=== PATIENT | female | born 1950 | race Caucasian/White ===

== ENCOUNTER 2018-09-03 08:05 | Inpatient (IN) ==
--- NOTE | 2018-09-02 21:38 | Discharge Summary ---
<Russell Heath - Last Filed: 09/03/18 09:16> Orders not resulted at time of discharge: Pending orders 09/02/18 21:33 H/H [Hemoglobin and Hematocrit] [HEME] Routine 09/03/18 00:01 XR shoulder complete LT [XR] Routine 09/03/18 08:26 US anesthesia pain block [US] Routine Date of Encounter: 09/03/18 - Hospital Course Hospital course: Ms. Stahl is a 68 year old female - Time Spent with Patient Total time spent providing and/or coordinating discharge services: - Discharge Medications Home Medications: OxyCODONE Immed Rel [Roxicodone 5 MG] 5 mg PO Q6HR PRN 7 Days #28 tablet [Rx] Albuterol Sulfate [Albuterol Inhaler] 2 puff IH Q4HR PRN 09/03/18 [History] Amitriptyline [Elavil] 50 mg PO HS 09/03/18 [History] Aspirin [Lo-Dose Aspirin EC] 81 mg PO DAILY 09/03/18 [History] Benazepril HCl 5 mg PO DAILY 09/03/18 [History] Budesonide/Formoterol 160/4.5 [Symbicort 160/4.5] 2 puff IH BIDR 09/03/18 [ History] Esomeprazole Magnesium [Nexium] 40 mg PO HS 09/03/18 [History] Gabapentin [Neurontin] 800 mg PO BID 09/03/18 [History] Leflunomide 20 mg PO DAILY 09/03/18 [History] Multivit-Min/FA/Lycopen/Lutein [Centrum Silver Men Tablet] 1 tab PO DAILY [History] Simvastatin [Zocor] 40 mg PO HS 09/03/18 [History] Allergies/Adverse Reactions: 3 Allergy/AdvReac Type Severity Reaction Status Date / Time No Known Allergies Allergy Verified 09/03/18 09:34 Primary care physician: Gabriela Oneill CNP - Patient Status Disposition: Home, Self-Care Condition: Good - Discharge Instructions Follow Up With: Gabriela Oneill CNP [Primary Care Provider] - Additional Instructions: Discharge Instructions: Total Shoulder Please call [facility] ([phone]), your Primary Care Physician, or report to the Emergency Room if you have any of the following symptoms: Nausea, vomiting, fever greater that 101.5, swelling, chest pain, shortness of breath, increased pain/redness/drainage/odor for your incision site, numbness/ tingling, or any other concerning symptoms. ACTIVITY: Always keep your arm in the sling. Do not raise your arm away from your body. Do not use your arm to help with getting in or out of bed. No weight bearing permitted. Only perform those exercises given to you by your therapist. Incentive Spirometer 10 times an hour. MEDICATIONS: Upon discharge resume your home medications. Take all the medications as prescribed. Take a stool softener if taking narcotic pain medications. Stool softeners are only effective if you drink enough fluids. Drink 6-8 glass of water or fluids a day, unless this is not allowed for another health problem. Despite using stool softeners, if you haven't had a bowel movement in 3 days, please switch to a gentle laxative. Gentle laxatives are sold over the counter. You should have a bowel movement within 24 hours, if not call the office. You will be discharged from the hospital with a prescription for pain medication. You are encouraged to decrease the use of narcotic pain medication as tolerated. Should you require a refill, please call the office. [facility] prescribes narcotic pain medication for only 4-6 weeks after surgery. If you require pain medication beyond this time period, you may be referred to your Primary Care Physician or to the Pain Clinic for further evaluation. Plan ahead for refills on pain medication as many narcotics either need to be picked up at the office or mailed. It is best to call 48-72 hours in advance of needing a prescription refill so you don't run out of medication. To help control the post-operative pain, you may take NSAIDs (Aleve,Advil, Motrin, Ibuprofen, Naprosyn) or Tylenol as prescribed on the bottle in addition to the pain medication. WOUND CARE: Leave the dressing on for 7-10 days. You may change the dressing if it becomes saturated greater than 50%. Do not get the dressing wet at anytime. Wash your hands with antibacterial soap, rinse and dry prior to any wound care. If you have severino the visiting nurse or rehab facility can remove the stapes 10-14 days after surgery and place steri-strips across the wound. Leave the steri-strips in place until they fall off on their own. You may let water from the shower run on top of the steri-strips. If you do not have a visiting nurse or rehab facility, you will need to return to the office at 10-14 days for the severino to be removed. If you have itching or redness around the dressing call the office. FOLLOW-UP: Please follow up with your surgeon in the orthopedic clinic, as scheduled <Keisha Meyer - Last Filed: 09/03/18 16:48> Date of Encounter: 09/03/18 Time of Encounter: 16:45 - Discharge Diagnosis (1) Status post reverse total arthroplasty of left shoulder Priority: Primary Status: Acute Comments: Remove Pillow in AM Opsite dressing, leave intact until first post-operative visit. Zipline/[place] in place, plan to remove at post-operative day #14-16. If dressing becomes >50% saturated, contact office, remove dressing and place appropriate dressing in its place. Do not allow for dressing to get wet. Shoulder Precautions x 6 weeks. Apply cold therapy wrap 3-6x/day for 20 minutes at a time. Encourage ambulation throughout the day. Use Incentive spirometer 10x/hour. Elevate affected extremity above heart as tolerated. NWB to affected upper extremity x 6 weeks. Will remove brace at first post-operative appointment. OK to remove during PT/ OT and Home exercises. (2) Rotator cuff arthropathy of left shoulder Priority: Primary Status: Acute - Hospital Course Hospital course: Ms. Stahl is a 68 year old female, status post Left TSR-reverse. . Patient had uneventful postoperative course. Stable for discharge. Complaining of nausea - given Scopalamine patch. Patient seen at bedside, without complaints. A&O x 3 Afebrile, vital signs stable. Vital Signs Temp Pulse Resp BP Pulse Ox 09/03/18 15:15 94 18 143/85 91 09/03/18 14:15 86 16 132/84 92 09/03/18 13:14 83 16 126/84 09/03/18 12:51 97.6 F 80 16 121/83 96 09/03/18 12:15 76 16 138/89 93 09/03/18 11:52 98.2 F 83 18 151/74 95 09/03/18 11:42 98.1 F 84 18 135/74 96 09/03/18 11:32 98.1 F 91 18 117/83 94 09/03/18 11:22 97.7 F 135/79 98 09/03/18 10:09 88 132/75 94 09/03/18 09:54 87 138/74 95 09/03/18 08:27 98.2 F 92 18 132/68 94 Intake and Output 09/03/18 09/03/18 09/03/18 07:59 15:59 23:59 Output Total 50 / 50 Balance -50 / -50 Output: Estimated Blood Loss 50 / 50 Other: Weight 85.729 kg Patient Weight 09/03/18 23:59 Weight 85.729 kg Labs reviewed. H/H - stable, asymptomatic Short CBC 09/03/18 Range/Units 11:40 Hgb 12.1 (11.5-15.4) g/dL Hct 37.9 (35.3-44.9) % Pain control: adequate Participating in PT. All questions and concerns addressed. Educated on use of incentive spirometer. Encouraged ambulation and proper hydration. Patient educated on post-operative restrictions and post-operative care. Assessment and plan: Continue with postoperative care Discharge plan: Home , discharge today.? - Time Spent with Patient Total time spent providing and/or coordinating discharge services: Date of admission: 09/03/18 Primary care physician: Gabriela Oneill CNP Discharging clinician: Keisha Meyer Anticipated date of discharge: 09/03/18 - Patient Status Functional capacity at discharge: independent ambulation Overall status at discharge: patient is progressing back to baseline - Diet and Activity Activity: as per physical therapy
--- NOTE | 2018-09-03 08:25 | History & Physical Report ---
Date of Encounter: 09/03/18 Time of Encounter: 08:25 24 Hour HP Update - Instructions Instructions: If the History and Physical is less than 30 days old and was completed prior to A.M. admission and or procedure and has NOT been updated on calendar day of procedure please complete this update prior to performing procedure. - Update Patient reports changes in Medical Condition: No Changes in examination, assessment, or condition: No Changes in Medication: No Preop tests/diagnostics Reviewed: Yes Surgery Remains Indicated: Yes Consent for Planned Operative Procedure(s) Verified: Yes - Pre-Operative Checklist Preoperative Checklist Indicated: No Prophylactic Antibiotic Ordered: Yes Is VTE Prophylaxis Indicated?: NO
[2018-09-03] MEDS ORDERED: Albuterol 2.5 MG/3 ML NEBULIZER IH ONE (08:36)
[2018-09-03] MEDS ORDERED: CeFAZolin Syr 2,000MG/20 ML 2,000 MG/20 ML SYRINGE IVPB ONE (08:36)
[2018-09-03] MEDS ORDERED: Albuterol 2.5 MG/3 ML NEBULIZER ONE (08:40)
[2018-09-03] MEDS ORDERED: Ringers Solution, Lactated 1,000 ML IVC SCH ×2 (08:45→12:37)
--- NOTE | 2018-09-03 08:52 | Anesthesia Evaluation PreOp ---
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 History: Denies Any Significant HX Other Medical History: GERD, Other (RA) Anesthesia History: No Prior Anesthetic Complications, Past Anesthesia : No Alcohol Use: none Drug use: none Medications and Allergies Albuterol Sulfate [Albuterol Inhaler] 90 mcg IH Q4HR PRN 12/22/15 [History] Amitriptyline [Elavil] 50 mg PO HS 12/22/15 [History] Aspirin [Adult Low Dose Aspirin EC] 81 mg PO HS 12/22/15 [History] Benazepril HCl 5 mg PO DAILY 12/22/15 [History] Esomeprazole Magnesium [Nexium] 40 mg PO HS 12/22/15 [History] Famotidine [Pepcid] 20 mg PO DAILY 12/22/15 [History] Fluticasone/Vilanterol [Breo Ellipta 200-25 Mcg INH] 1 each IH BID PRN 12/22/15 [History] Furosemide [Lasix] 80 mg PO DAILY PRN 12/22/15 [History] Gabapentin [Neurontin] 800 mg PO TID 12/22/15 [History] Guaifenesin/Dm/Pseudoephedrine [Capmist Dm Tablet] 1 tab PO BID 12/22/15 [ History] Hydroxychloroquine [Plaquenuil] 200 mg PO DAILY 12/22/15 [History] Leflunomide [Arava] 20 mg PO DAILY 12/22/15 [History] Naproxen [Naprosyn] 500 mg PO BID PRN #20 tablet 03/24/18 [Rx] OxyCODONE Immed Rel [Roxicodone 5 MG] 5 mg PO Q6HR PRN 7 Days #28 tablet [Rx] 3 Allergy/AdvReac Type Severity Reaction Status Date / Time No Known Allergies Allergy Verified 08/13/18 11:05 - Meds/Allergy Pre-op Review Medications Reviewed: Yes Allergies Reviewed: Yes Beta Blockers on Current Med List: No Anesthesia Results - Labs Laboratory Tests 08/13/18 08/13/18 08/13/18 11:35 11:35 11:35 WBC 5.9 Hgb 13.5 Hct 41.7 Plt Count 237 PT 11.4 INR 1.0 APTT 34.4 Sodium 139 Potassium 4.4 Chloride 106 Carbon Dioxide 29 BUN 11 Creatinine 0.68 Est GFR (Non-Af Amer) > 60 - Imaging EKG: report reviewed (SINUS RHYTHM MODERATE VOLTAGE CRITERIA FOR LVH, CONSIDER NORMAL VARIANT [MEETS CRITERIA IN ONE), image reviewed Anesthesia Exam Vital Signs/O2 Sat/Glucose, Most Recent Temp Pulse Resp BP Pulse Ox 98.2 F 92 18 132/68 94 09/03/18 08:27 09/03/18 08:27 09/03/18 08:27 09/03/18 08:27 09/03/18 08:27 - HEENT Pupil (Motor): Pupils equal Mallampati: II Denture Type: Upper: Complete, Lower: Complete - AGRICULTURAL EXTENSION OFFICER LOC: Oriented AGRICULTURAL EXTENSION OFFICER Motor: Normal RUE, Normal LUE, Normal RLE, Normal LLE, Normal Face AGRICULTURAL EXTENSION OFFICER Sensory: Normal: RUE, LUE, RLE, LLE, Face - Cardiac Rhythm: Regular Murmur: None - Pulmonary Breath Sounds: bilateral Clear Respiratory Effort: Symmetrical Anesthesia Assess/Plan ASA Score: 3 Modified Keene Scale for Level of Consciousness: Cooperative, oriented, and tranquil Anesthetic Plan: General, Regional Monitoring Plan: Standard Monitors Recovery Plan: PACU
[2018-09-03] MEDS ORDERED: Acetaminophen IV 1,000 MG/100 ML INFUS..BTL IVPB ONE (08:54)
[2018-09-03] MEDS ORDERED: Famotidine 20 MG/2 ML VIAL IVP ONE (08:54)
[2018-09-03] MEDS ORDERED: *HR* Midazolam HCl 2 MG/2 ML VIAL ONE (09:24)
[2018-09-03] MEDS ORDERED: Bupivacaine/Clonidine Syringe 1 EACH SYRINGE ONE (09:24)
[2018-09-03] MEDS ORDERED: *HR* FentaNYL (PF) 100 MCG/2 ML VIAL ONE (09:24)
[2018-09-03] MEDS ORDERED: ROPIVACAINE HCL/PF 0.5% 30 ML VIAL ONE (09:24)
[2018-09-03] MEDS ORDERED: *HR* Propofol 200 MG/20 ML VIAL IVP ONE (09:26)
[2018-09-03] MEDS ORDERED: *HR* Rocuronium Bromide 50 MG/5 ML VIAL ONE (09:28)
[2018-09-03] MEDS ORDERED: Dexamethasone 4 MG/ML VIAL ONE (09:28)
[2018-09-03] MEDS ORDERED: *HR* Succinylcholine 200 MG/10 ML VIAL IVP ONE (09:28)
[2018-09-03] MEDS ORDERED: Ondansetron 4 MG/2 ML VIAL ONE (09:28)
[2018-09-03] MEDS ORDERED: Lidocaine -MPF 2% 2 ML VIAL ONE (09:28)
[2018-09-03] MEDS ORDERED: Ethanol\\Acetic Acid\\Na Ace\\Ben 1,000 ML IRRIG.SOLN IR ONE (09:55)
[2018-09-03] MEDS ORDERED: *HR* HYDROmorphone (PF) 1 MG/ML SYRINGE IVP PRN (10:03)
[2018-09-03] MEDS ORDERED: *HR* OxyCODONE/APAP 5/325 TABLET PO PRN ×2 (10:03→12:37)
[2018-09-03] MEDS ORDERED: Ondansetron 4 MG/2 ML VIAL IVP ONE (10:03)
--- NOTE | 2018-09-03 10:07 | Anesthesia Procedures ---
Date of Encounter: 09/03/18 Time of Encounter: 09:57 Procedures: Anesthesia - Nerve Block Procedure Date: 09/03/18 Time: 09:57 Allergies/Adv Reactions: NKDA Pre-op Diagnosis: L Shoulder Arthritis Surgical Procedure: L Total Shoulder Arthroplasty Checklist: Correct Patient Identifier, Correct procedure, History checked Correct side: Left Blood Thinner: No Monitor Applied: EKG, BP, Pulse Oximetry Supplemental Oxygen via Nasal Cannula (L/min): 2 Sedation: Versed (mg): 1 Sedation: Fentanyl (mcg): 100 Indication: Post Op Analgesia Pre-op Neuro Deficits: No Block Type: Supraclavicular, Other (Intercostobracheal, Intermediate Cervical Plexus) Catheter placed: No Sterile Technique: Yes Ultrasound used: Yes Anatomy identified: Yes Visual spread of Local: Yes Neuro Stimulation: No Blood on Needle Aspiration: No Smooth Injection of Local: Yes Pain with Injection of Local: No Prep: Chlorhexadine Needle: 22 x 50 mm Stimuplex Local: 0.25% Bupivicaine w/Clonidine 20 mcg/cc (10mL Intermediate Cervical Plexus, 10mL Intercostobracheal), Ropivacaine (30mL 0.5% Ropivacaine with 8mg Decadron for Supraclavicular Block) Number of Attempts: 1 Complications: None/effective block Vitals: Vital Signs/O2 Sat/Glucose, Most Recent Temp Pulse Resp BP Pulse Ox 98.2 F 87 18 138/74 95 09/03/18 08:27 09/03/18 09:54 09/03/18 08:27 09/03/18 09:54 09/03/18 09:54 1
[2018-09-03] MEDS ORDERED: *HR* PHENYLEPHRINE 1,000 MCG/10 ML SYRINGE IVP ONE (10:22)
--- NOTE | 2018-09-03 11:08 | Orthopedic Operative Note ---
Date of procedure: 09/03/18 Pre-op diagnosis: Left shoulder cuff tear arthropathy Post-op diagnosis: same Procedure: Procedure: Total Shoulder Replacment Reverse, left Estimated blood loss: 50 cc Hardware: Metal and polyethylene replacement: Arthrex 24 +2 , when 5 mm screw glenoid baseplate, 2 4.5 screws. 2 5.5 screw, 39+4 glenosphere, 7 apex humeral stem, poly insert 3 Exam Under anesthesia: Full motion no instability Procedural Notes: Irreparable tear supraspinatus tendon Operative procedure: The patient was brought to the operating room and placed on the operating room table. After general anesthesia was administered the operative shoulder was examined. Findings were noted. The patient was placed in the modified beachchair position. All pressure points were padded appropriately. And the head was stabilized in the neutral position. The operative extremity was prepped and draped in the sterile surgical fashion. The patient received IV antibiotics prior to skin incision. A standard deltopectoral approach was made to the operative shoulder. Incision was made to the skin and subcutaneous tissue,hemo stasis was obtained with Bovie cautery. Using careful blunt dissection the cephalic vein was identified and mobilized medially. The deltopectoral interval was developed and the clavipectoral fascia was incised. The subscap was released off the lesser tuberosity and tagged with #2 FiberWire suture subscap irreparable. The humerus was dislocated patient noted to have irreparable tear supraspinatus tendon, and the humeral cut was made along the anatomic neck. Anterior and posterior Bankart retractors were placed to expose the glenoid. The glenoid guide was seated and the centering hole was made. It was reamed with the appropriate reamer. The 24, +2, 25 mm screw, baseplate was seated and secured with (2) 4.5 screws and 2 5.5 screw. The baseplate was irrigated and dried and the X Glenosphere was seated and secured with the Foss taper. The Foss taper was tested and found to be secure the humerus was redislocated and prepared with the diaphyseal reamers, followed by a broaching process up to the appropriate size 7 apex in the patient 's anatomic version. The metaphyseal reamer was then utilized. Trial reduction found the shoulder to be relocatable. Trial components were removed and 7 apex stem was impacted in place in the patient's anatomic version. Trial reduction found the shoulder to be relocatable and stable with the appropriate 3 Trial component was removed and the real implant was seated and secured the shoulder was reduced. The shoulder had excellent motion and excellent stability and no evidence of dislocation. The deep tissue was irrigated with pulse irrigation. The PA close the shoulder. The deltopectoral interval was closed with a running #1 PDS suture, subcutaneous tissue was irrigated and closed with 0 PDS suture, the skin was closed with Dermabond. The patient was placed in a sterile dressing, abduction brace and extubated. The patient was then transferred to the recovery room in stable condition. Anesthesia: GETA Surgeon: Russell Heath Was there an education administrative assistant present: Yes Mental Health Program Director: Keisha Meyer Estimated blood loss (cc): 50 Condition: stable Disposition: PACU
[2018-09-03 12:07] LABS: Hematocrit 37.9 % (35.3-44.9); Hemoglobin 12.1 g/dL (11.5-15.4)
[2018-09-03] MEDS ORDERED: Temazepam 15 MG CAPSULE PO PRN (12:37)
[2018-09-03] MEDS ORDERED: MOM Conc 10 ML UD.LIQ PO PRN (12:37)
[2018-09-03] MEDS ORDERED: Sennosides 8.6 MG TABLET PO PRN (12:37)
[2018-09-03] MEDS ORDERED: traMADol 50 MG TABLET PO PRN (12:37)
[2018-09-03] MEDS ORDERED: Naloxone 0.4 MG/ML INJ IVP PRN (12:37)
[2018-09-03] MEDS ORDERED: Ondansetron 4 MG/2 ML VIAL IVP PRN (12:37)
[2018-09-03] MEDS ORDERED: *HR* OxyCODONE Immed Rel 5 MG TABLET PO PRN (12:37)
[2018-09-03 15:25] VITALS: BP 143/85
[2018-09-03] MEDS ORDERED: *HR* Enoxaparin 30 MG/0.3 ML SYRINGE SQ ONE (15:33)
[2018-09-03] MEDS ORDERED: *HR* Enoxaparin 30 MG/0.3 ML SYRINGE SQ SCH ×2 (15:45→18:00)
--- NOTE | 2018-09-03 17:41 | Anesthesia Evaluation Post Op ---
Date of Encounter: 09/03/18 Time of Encounter: 11:48 - Discharge PostOp Status: Transfer Patient to floor (Patient's vital signs have been reviewed. Patient is stable postoperatively and has adequately recovered from anesthesia. Patient is determined to have stable airway patency and respiratory function including respiratory rate and oxygen saturation. Patient has a stable heart rate, blood pressure and adequate hydration. Patients mental status is acceptable. Patients temperature is appropriate. Pain and nausea are adequately controlled.)
[2018-09-03] MEDS ORDERED: Gabapentin 400 MG CAPSULE PO SCH (21:00)
[2018-09-03] MEDS ORDERED: Budesonide/Formoterol 160/4.5 1 PUFF INH IH SCH (22:00)
[2018-09-04] MEDS ORDERED: Multivit/Ca/Min/Fe/FA 1 TAB TABLET PO SCH (09:00)
[2018-09-04] MEDS ORDERED: Leflunomide [Leflunomide] 20 MG PO SCH (09:00)
[2018-09-04] MEDS ORDERED: Aspirin Enteric Coated 81 MG Tablet PO SCH (09:00)
--- NOTE | 2018-09-04 16:15 | Physician Discharge Referral ---
Home Health/Hosp Referral Info Transfer to: Home Health Provider in Charge Post Discharge: PCP - Diagnosis (1) Status post reverse total arthroplasty of left shoulder Priority: Primary Status: Acute (2) Rotator cuff arthropathy of left shoulder Priority: Primary Status: Acute (3) Hypoxia Priority: Secondary Status: Acute - Respiratory Orders Oxygen / L per min (2L at night per NC), None Smoking Cessation: Smoking cessation has been advised. For more information, call the [place] Tobacco Quit Line at 5-997-HGWB-NOW. - Diet/Nutrition Diet/Nutrition Orders: Regular - Activity Activity Orders: Up ad randa, Ambulate - Services Needed Following services are medically necessary services: Nursing, Home Health Aide, Physical Therapy, Occupational Therapy Home Care Orders: Opsite dressing, leave intact until first post-operative visit. Zipline in place , plan to remove at post-operative day #14-16. If dressing becomes >50% saturated, contact office, remove dressing and place appropriate dressing in its place. Do not allow for dressing to get wet. Shoulder Precautions x 6 weeks. Apply cold therapy wrap 3-6x/day for 20 minutes at a time. Encourage ambulation throughout the day. Use Incentive spirometer 10x/hour. Elevate affected extremity above heart as tolerated. NWB to affected upper extremity x 6 weeks. Will remove brace at first post-operative appointment. OK to remove during PT/ OT and Home exercises. Remove ABD pillow at Postoperative day #1 - Transfer Medications Home Medications: OxyCODONE Immed Rel [Roxicodone 5 MG] 5 mg PO Q6HR PRN 7 Days #28 tablet [Rx] Albuterol Sulfate [Albuterol Inhaler] 2 puff IH Q4HR PRN 09/03/18 [History] Amitriptyline [Elavil] 50 mg PO HS 09/03/18 [History] Aspirin [Lo-Dose Aspirin EC] 81 mg PO DAILY 09/03/18 [History] Benazepril HCl 5 mg PO DAILY 09/03/18 [History] Budesonide/Formoterol 160/4.5 [Symbicort 160/4.5] 2 puff IH BIDR 09/03/18 [ History] Esomeprazole Magnesium [Nexium] 40 mg PO HS 09/03/18 [History] Gabapentin [Neurontin] 800 mg PO BID 09/03/18 [History] Leflunomide 20 mg PO DAILY 09/03/18 [History] Multivit-Min/FA/Lycopen/Lutein [Centrum Silver Men Tablet] 1 tab PO DAILY [History] Simvastatin [Zocor] 40 mg PO HS 09/03/18 [History] Allergies/Adverse Reactions: 3 Allergy/AdvReac Type Severity Reaction Status Date / Time No Known Allergies Allergy Verified 09/03/18 09:34 Certification: Further, I certify that my clinical findings support that this patient is homebound (i.e. absences from home require considerable and taxing effort and are for medical reasons or jain services or infrequently or short duration when for other reasons) because: Homebound Reason: Post-surgery restriction and or conditions limit ability to leave home Attestation: My signature below is to certify that this patient is under my care and that I, or nurse practitioner, or a physician's patient assistant working with me, has a face-to -face encounter with this patient.
== END 2018-09-03 16:15 | disposition home or self-care (01) | DRG 483 ==
LOC: SAMDAY 08:05 → 3NENU 12:04
PROVIDERS: ADMIT Orthopaedic Surgery; ATTEND Orthopaedic Surgery